=== PATIENT | male | born 1995 | race Asian ===

== ENCOUNTER 2020-03-31 14:16 | Inpatient (IN) | payer OTHER ==
[~2020-03-31] VITALS: Ht 167.6 cm; Wt 53.3 kg
[2020-03-31] MEDS ORDERED: LITH300T29 PO (17:00)
[2020-03-31] MEDS ORDERED: ARIP15TA2 PO (17:00)
[2020-03-31] MEDS ORDERED: TRIH2TAB3 PO (17:00)
[2020-03-31] MEDS ORDERED: FAMO20 PO (17:02)
[2020-03-31] MEDS ORDERED: ZOLPIDEM TARTRATE 10 MG TABLET PO PRN (17:45)
[2020-03-31] MEDS ORDERED: HALOPERIDOL 5 MG TABLET PO PRN (17:45)
[2020-03-31] MEDS ORDERED: LORazepam 2 MG TABLET PO PRN (17:45)
[2020-03-31] MEDS ORDERED: INFLUENZA VIRUS VACCINE QVS 2020-21 (6MO+)/PF 60 MCG/0.5 ML SYRINGE IM ONE (18:00)
[2020-03-31 18:05] VITALS: BP 111/65
[2020-04-01 06:00] VITALS: BP 124/68
[2020-04-01 08:16] VITALS: BP 124/72
[2020-04-01 08:39] LABS: BASOPHILS % (AUTO) 0.7 % (0.0-2.0); EOSINOPHILS % (AUTO) 1.6 % (1.0-6.0); HEMATOCRIT 43.1 % (41-53); HEMOGLOBIN 14.7 g/dL (13.5-17.5); LYMPHOCYTES # (AUTO) 1.1 K/uL (1.0-4.8); LYMPHOCYTES % (AUTO) 16.7 % (22.0-44.0); MEAN CORPUSCULAR HEMOGLOBIN 31.2 pg (26.0-34.0); MEAN CORPUSCULAR HGB CONC 34.2 G/dL (31.0-37.0); MEAN CORPUSCULAR VOLUME 91 fL (80-100); MONOCYTES # (AUTO) 0.5 K/uL (0.1-1.0); MONOCYTES % (AUTO) 7.8 % (2.0-9.0); NEUTROPHILS # (AUTO) 4.7 K/uL (1.8-7.7); NEUTROPHILS % (AUTO) 73.2 % (40.0-70.0); PLATELET COUNT (AUTO) 363 K/uL (150-450); RED BLOOD CELL COUNT(AUTO) 4.73 MIL/uL (4.50-5.90); RED CELL DISTRIBUTION WIDTH 12.4 % (11.5-14.5)
[2020-04-01 08:42] LABS: APPEARANCE,URINE CLEAR (CLEAR); BILIRUBIN,URINE NEGATIVE (NEGATIVE); GLUCOSE, URINE (UA) NEGATIVE (NEGATIVE); KETONES,URINE NEGATIVE (NEGATIVE); LEUKOCYTE ESTERASE ,URINE NEGATIVE (NEGATIVE); NITRATE,URINE NEGATIVE (NEGATIVE); OCCULT BLOOD,URINE NEGATIVE (NEGATIVE); PROTEIN,URINE NEGATIVE (NEGATIVE); UROBILINOGEN,URINE 0.2 mg/dL (<=1.0)
[2020-04-01 08:48] LABS: AMPHET/METH SCREEN,URINE NEGATIVE (NEGATIVE); BARBITURATE SCREEN, URINE NEGATIVE (NEGATIVE); BENZODIAZEPINES SCREEN,URINE NEGATIVE (NEGATIVE); CANNABINOID SCREEN,URINE NEGATIVE (NEGATIVE); COCAINE SCREEN,URINE NEGATIVE (NEGATIVE); METHADONE SCREEN, URINE NEGATIVE (NEGATIVE); OPIATE SCREEN,URINE NEGATIVE (NEGATIVE)
[2020-04-01 08:49] LABS: HEMOGLOBIN A1C 5.1 % (3.8-5.6)
[2020-04-01 08:50] LABS: PHENCYCLIDINE SCREEN,URINE NEGATIVE (NEGATIVE)
[2020-04-01 08:59] LABS: ALANINE AMINOTRANSFERASE 62 U/L (12-78); ALBUMIN 4.3 g/dL (3.4-5.0); ALKALINE PHOSPHATASE 62 U/L (46-116); ANION GAP 7 mmol/L (8-16); ASPARTATE AMINOTRANSFERASE 21 U/L (15-37); BILIRUBIN,TOTAL 0.5 mg/dL (0.1-1.0); CARBON DIOXIDE 31 mmol/L (22-29); CHLORIDE 99 mmol/L (98-107); CHOL/HDL RATIO 6.2 (4.2-7.3); CHOLESTEROL 198 mg/dL (131-200); CREATININE 0.95 mg/dL (0.60-1.30); FREE T4 (FREE THYROXINE) 1.21 ng/dL (0.76-1.46); GLOMERULAR FILTR. RATE CALC > 60 mL/min (>60); GLUCOSE,RANDOM 81 mg/dL (70-110); HDL CHOLESTEROL 32 mg/dL (40-60); LDL CHOL (CALC.) 150 mg/dL (0-130); POTASSIUM 3.9 mmol/L (3.5-5.1); SODIUM SERUM 137 mmol/L (136-145); THYROID STIMULATING HORMONE 3.03 uIU/mL (0.36-3.74); TOTAL PROTEIN, SERUM 8.3 g/dL (6.4-8.2); TRIGLYCERIDES 81 mg/dL (15-150); UREA NITROGEN, BLOOD 17 mg/dL (7-18)
[2020-04-01] MEDS ORDERED: MAG HYDROX/AL HYDROX/SIMETH ES 30 ML SUSPENSION UDCUP PO PRN (09:00)
[2020-04-01] MEDS ORDERED: CloNIDine HCL 0.1 MG TABLET PO PRN (09:00)
[2020-04-01] MEDS ORDERED: DOCUSATE SODIUM 100 MG CAPSULE PO PRN (09:00)
[2020-04-01] MEDS ORDERED: MAGNESIUM HYDROXIDE SUSPENSION 30 ML UDCUP PO PRN (09:00)
[2020-04-01] MEDS ORDERED: IBUPROFEN 600 MG TABLET PO PRN (09:00)
[2020-04-01] MEDS ORDERED: PETROLATUM,WHITE 28 GM JELLY TP PRN (09:00)
[2020-04-01] MEDS ORDERED: ACETAMINOPHEN 325 MG TABLET PO PRN (09:00)
[2020-04-01] MEDS ORDERED: BACITRACIN 28 GM OINTMENT TP PRN (09:00)
[2020-04-01] MEDS ORDERED: ALBUTEROL SULFATE HFA 90 MCG/PUFF 8 GM INHALER IH PRN (09:00)
[2020-04-01] MEDS ORDERED: ONDANSETRON HCL 4 MG TABLET PO PRN (09:00)
[2020-04-01] MEDS ORDERED: BENZOCAINE/MENTHOL LOZENGE PO PRN (09:00)
[2020-04-01] MEDS ORDERED: LOPERAMIDE HCL 2 MG CAPSULE PO PRN (09:00)
[2020-04-01] MEDS ORDERED: OMEPRAZOLE 20 MG CAPSULE PO PRN (09:00)
[2020-04-01 09:25] VITALS: BP 124/72
[2020-04-01] MEDS: LITHIUM CARBONATE 300 MG CAPSULE PO SCH ×2 (09:35→16:24)
[2020-04-01 16:42] VITALS: BP 107/64
[2020-04-01] MEDS: GABAPENTIN 100 MG CAPSULE PO SCH (20:17)
[2020-04-01] MEDS: QUEtiapine FUMARATE 300 MG TABLET PO SCH (20:17)
[2020-04-02 06:00] VITALS: BP 111/60
[2020-04-02] MEDS: LITHIUM CARBONATE 300 MG CAPSULE PO SCH ×2 (08:18→16:50)
[2020-04-02] MEDS: GABAPENTIN 100 MG CAPSULE PO SCH ×3 (08:18→16:50)
[2020-04-02 08:45] VITALS: BP 108/73
[2020-04-02 16:18] VITALS: BP 110/65
[2020-04-02] MEDS: QUEtiapine FUMARATE 300 MG TABLET PO SCH (20:07)
[2020-04-03 00:34] VITALS: BP 116/68
[2020-04-03] MEDS: GABAPENTIN 100 MG CAPSULE PO SCH ×3 (08:13→16:13)
[2020-04-03] MEDS: LITHIUM CARBONATE 300 MG CAPSULE PO SCH ×2 (08:13→16:13)
[2020-04-03 08:39] VITALS: BP 122/81
[2020-04-03 16:15] VITALS: BP 102/64
[2020-04-03] MEDS: QUEtiapine FUMARATE 300 MG TABLET PO SCH (20:07)
[2020-04-04 06:25] VITALS: BP 101/60
[2020-04-04] MEDS: GABAPENTIN 100 MG CAPSULE PO SCH (08:08)
[2020-04-04] MEDS: LITHIUM CARBONATE 300 MG CAPSULE PO SCH (08:08)
[2020-04-04 08:35] VITALS: BP 102/58
[2020-04-04] MEDS ORDERED: QUET200T PO (08:40)
[2020-04-04] MEDS ORDERED: GABA-1216 PO (08:40)
== END 2020-04-04 12:41 | disposition home or self-care (01) | DRG 885 ==
LOC: B2S 17:25
PROVIDERS: ADMIT Psychiatry & Neurology Psychiatry; ATTEND Psychiatry & Neurology Psychiatry
DX: F31.9 Bipolar disorder, unspecified (principal); K59.00 Constipation, unspecified; F41.9 Anxiety disorder, unspecified; G47.00 Insomnia, unspecified; Z28.21 Immunization not carried out because of patient refusal; T50.992A Poisoning by other drugs, medicaments and biological substances, intentional self-harm, initial encounter; Y92.89 Other specified places as the place of occurrence of the external cause
CPT/HCPCS: 80307; 83036; 84439; 84443; 87081